=== PATIENT | female | born 1980 | race Caucasian/White ===

== ENCOUNTER 2020-05-12 11:50 | Inpatient (IN) | payer OTHER ==
[2020-05-12 13:17] VITALS: BMI 17.2
[2020-05-12] MEDS ORDERED: MAG HYDROX/AL HYDROX/SIMETH 30 ML UNIT-DOSE CUP PO PRN (13:43)
[2020-05-12] MEDS ORDERED: MAGNESIUM CITRATE 300 ML BOTTLE PO PRN (13:43)
[2020-05-12] MEDS ORDERED: MENTHOL/PHENOL 1 EACH UD MM PRN (13:43)
[2020-05-12] MEDS ORDERED: ACETAMINOPHEN 325 MG TABLET (FP) PO PRN ×2 (13:43)
[2020-05-12] MEDS ORDERED: METHOCARBAMOL 500 MG TABLET PO PRN (13:43)
[2020-05-12] MEDS ORDERED: IBUPROFEN 400 MG TABLET (FP) PO PRN (13:43)
[2020-05-12] MEDS ORDERED: BISMUTH SUBSALICYLATE 262 MG/15 ML BTL PO PRN (13:43)
[2020-05-12] MEDS ORDERED: MAGNESIUM HYDROX 2400MG/30ML ORAL SUSPENSION 30 ML CUP PO PRN (13:43)
[2020-05-12] MEDS: hydrOXYzine PAMOATE 25 MG CAPSULE (FP) PO SCH ×3 (14:54→22:14)
[2020-05-12] MEDS: chlordiazePOXIDE HCL 25 MG CAPSULE PO PRN (14:54)
[2020-05-12 17:13] LABS: HEMATOCRIT 38.7 % (32.4-45.2); HEMOGLOBIN 12.9 GM/dL (10.7-15.3); MCHC 33.5 g/dl (32.0-36.0); MEAN CELL VOLUME 107.5 fl (80-96); MEAN PLT VOLUME 7.5 fl (7.5-11.1); PLATELET COUNT 239 K/MM3 (134-434); RDW 13.9 % (11.6-15.6); WHITE BLOOD COUNT 4.4 K/mm3 (4.0-10.0)
[2020-05-12] MEDS: chlordiazePOXIDE HCL 25 MG CAPSULE PO SCH ×2 (17:15→22:13)
[2020-05-12 17:23] LABS: CALCIUM 9.1 mg/dL (8.5-10.1)
[2020-05-12 17:24] LABS: ALBUMIN 4.4 g/dl (3.4-5.0)
[2020-05-12 17:27] LABS: CREATININE 0.6 mg/dL (0.55-1.3)
[2020-05-12 17:28] LABS: BILIRUBIN,TOTAL 0.7 mg/dL (0.2-1)
[2020-05-12 17:29] LABS: TOT PROT 8.6 g/dl (6.4-8.2)
[2020-05-12] MEDS ORDERED: OXcarbazepine 300 MG TABLET (UD) PO SCH (22:00)
[2020-05-12] MEDS: THIAMINE HCL 100 MG TABLET (FP) PO SCH (22:14)
[2020-05-12] MEDS: MELATONIN 5 MG TABLETS PO SCH (22:15)
[2020-05-12] MEDS: PERPHENAZINE 4 MG TABLET PO SCH (22:15)
[2020-05-13] MEDS: chlordiazePOXIDE HCL 25 MG CAPSULE PO SCH ×4 (05:17→22:04)
[2020-05-13] MEDS: hydrOXYzine PAMOATE 25 MG CAPSULE (FP) PO SCH (05:17)
[2020-05-13] MEDS: PRENATAL VITAMINS W/ FOLIC ACID TABLET (FP) PO SCH (10:03)
[2020-05-13] MEDS: PERPHENAZINE 4 MG TABLET PO SCH ×2 (10:04→22:03)
[2020-05-13] MEDS: ONDANSETRON *ODT* 4 MG TABLET SL PRN (10:04)
[2020-05-13] MEDS: hydrOXYzine PAMOATE 25 MG CAPSULE (FP) PO PRN ×2 (17:48→22:04)
[2020-05-13] MEDS: THIAMINE HCL 100 MG TABLET (FP) PO SCH (22:03)
[2020-05-13] MEDS: MELATONIN 5 MG TABLETS PO SCH (23:25)
[2020-05-14] MEDS: chlordiazePOXIDE HCL 25 MG CAPSULE PO SCH ×4 (06:16→22:31)
[2020-05-14] MEDS: PRENATAL VITAMINS W/ FOLIC ACID TABLET (FP) PO SCH (10:11)
[2020-05-14] MEDS: PERPHENAZINE 4 MG TABLET PO SCH ×2 (10:12→22:01)
[2020-05-14] MEDS ORDERED: COLLOIDAL OATMEAL 1 BAR EACH TP ONE (12:42)
[2020-05-14] MEDS: hydrOXYzine PAMOATE 25 MG CAPSULE (FP) PO PRN ×2 (17:32→22:01)
[2020-05-14] MEDS: THIAMINE HCL 100 MG TABLET (FP) PO SCH (22:01)
[2020-05-14] MEDS: MELATONIN 5 MG TABLETS PO SCH (22:01)
[2020-05-14] MEDS: chlordiazePOXIDE HCL 25 MG CAPSULE PO PRN (22:02)
[2020-05-14] MEDS: ONDANSETRON *ODT* 4 MG TABLET SL PRN (22:04)
[2020-05-15] MEDS ORDERED: chlordiazePOXIDE HCL 10 MG CAPSULE PO PRN
[2020-05-15] MEDS: chlordiazePOXIDE HCL 10 MG CAPSULE PO SCH ×4 (05:44→22:19)
[2020-05-15] MEDS: PERPHENAZINE 4 MG TABLET PO SCH ×2 (10:04→22:20)
[2020-05-15] MEDS: PRENATAL VITAMINS W/ FOLIC ACID TABLET (FP) PO SCH (10:04)
[2020-05-15] MEDS: THIAMINE HCL 100 MG TABLET (FP) PO SCH (22:20)
[2020-05-15] MEDS: MELATONIN 5 MG TABLETS PO SCH (22:20)
[2020-05-16] MEDS: chlordiazePOXIDE HCL 10 MG CAPSULE PO SCH ×2 (06:26→17:36)
[2020-05-16] MEDS: PRENATAL VITAMINS W/ FOLIC ACID TABLET (FP) PO SCH (09:20)
[2020-05-16] MEDS: PERPHENAZINE 4 MG TABLET PO SCH ×2 (09:20→22:09)
[2020-05-16] MEDS: hydrOXYzine PAMOATE 25 MG CAPSULE (FP) PO PRN (22:08)
[2020-05-16] MEDS: THIAMINE HCL 100 MG TABLET (FP) PO SCH (22:08)
[2020-05-16] MEDS: MELATONIN 5 MG TABLETS PO SCH (22:08)
[2020-05-17] MEDS ORDERED: chlordiazePOXIDE HCL 10 MG CAPSULE PO ONE (05:00)
[2020-05-17] MEDS: PRENATAL VITAMINS W/ FOLIC ACID TABLET (FP) PO SCH (10:16)
[2020-05-17] MEDS: PERPHENAZINE 4 MG TABLET PO SCH ×2 (10:16→21:57)
[2020-05-17] MEDS: THIAMINE HCL 100 MG TABLET (FP) PO SCH (21:57)
[2020-05-17] MEDS: MELATONIN 5 MG TABLETS PO SCH (21:57)
[2020-05-18] MEDS: PERPHENAZINE 4 MG TABLET PO SCH (10:33)
[2020-05-18] MEDS: PRENATAL VITAMINS W/ FOLIC ACID TABLET (FP) PO SCH (10:33)
[2020-05-18 13:08] VITALS: BP 100/65; PULSE 93; TEMP 97.3
== END 2020-05-18 15:28 | disposition other institution (70) | DRG 774 ==
LOC: YASAS 11:50 → Y3N 13:31
PROVIDERS: ADMIT Allergy & Immunology; ATTEND Allergy & Immunology
PROC: HZ2ZZZZ Detoxification Services for Substance Abuse Treatment (ICD-10-PCS; principal; 2020-05-12)
DX: F10.230 Alcohol dependence with withdrawal, uncomplicated (principal); F14.90 Cocaine use, unspecified, uncomplicated; F31.9 Bipolar disorder, unspecified; R63.4 Abnormal weight loss; Z68.1 Body mass index [BMI] 19.9 or less, adult; Z87.891 Personal history of nicotine dependence; Z98.890 Other specified postprocedural states; Z91.5 Personal history of self-harm; Z88.0 Allergy status to penicillin
CPT/HCPCS: 36415; 80053; 80183; 85027; 86780; 93005; 93010; C9803; Q0162; U0003

== ENCOUNTER 2020-05-18 15:12 | Inpatient (IN) | payer OTHER ==
[2020-05-18] MEDS ORDERED: guaiFENesin 200 MG/10 ML 10 ML UNIT-DOSE CUPS PO PRN (15:50)
[2020-05-18] MEDS ORDERED: P-EPHED 60MG/TRIPROLIDI 2.5MG TABLET PO PRN (15:50)
[2020-05-18] MEDS ORDERED: MAG HYDROX/AL HYDROX/SIMETH 30 ML UNIT-DOSE CUP PO PRN (15:50)
[2020-05-18] MEDS ORDERED: LOPERAMIDE HCL 2 MG CAPSULE PO PRN (15:50)
[2020-05-18] MEDS ORDERED: ACETAMINOPHEN 325 MG TABLET (FP) PO PRN (15:50)
[2020-05-18] MEDS ORDERED: MAGNESIUM CITRATE 300 ML BOTTLE PO PRN (15:50)
[2020-05-18] MEDS ORDERED: MENTHOL/PHENOL 1 EACH UD MM PRN (15:50)
[2020-05-18] MEDS ORDERED: NICOTINE POLACRILEX 2 MG GUM BUC PRN (15:50)
[2020-05-18] MEDS ORDERED: PT OWN MED DRAWER 7, Y5N ONE (18:39)
[2020-05-18] MEDS: MELATONIN 5 MG TABLETS PO SCH (21:29)
[2020-05-18] MEDS: THIAMINE HCL 100 MG TABLET (FP) PO SCH (21:29)
[2020-05-18] MEDS: PERPHENAZINE 4 MG TABLET PO SCH (22:46)
[2020-05-19] MEDS: hydrOXYzine PAMOATE 25 MG CAPSULE (FP) PO PRN (10:45)
[2020-05-19] MEDS: PRENATAL VITAMINS W/ FOLIC ACID TABLET (FP) PO SCH (10:45)
[2020-05-19] MEDS: NICOTINE 7 MG/24 HOURS TOPICAL PATCH TD SCH (10:45)
[2020-05-19] MEDS: PERPHENAZINE 4 MG TABLET PO SCH ×2 (10:45→22:41)
[2020-05-19] MEDS: MAGNESIUM HYDROX 2400MG/30ML ORAL SUSPENSION 30 ML CUP PO PRN (10:45)
[2020-05-19] MEDS ORDERED: PT OWN MED DRAWER 7, Y5N ONE (19:04)
[2020-05-19] MEDS: MELATONIN 5 MG TABLETS PO SCH (21:18)
[2020-05-19] MEDS: THIAMINE HCL 100 MG TABLET (FP) PO SCH (21:18)
[2020-05-19] MEDS: OXcarbazepine 300 MG TABLET (UD) PO SCH (22:41)
[2020-05-20] MEDS: PRENATAL VITAMINS W/ FOLIC ACID TABLET (FP) PO SCH (10:36)
[2020-05-20] MEDS: OXcarbazepine 300 MG TABLET (UD) PO SCH ×2 (10:37→21:37)
[2020-05-20] MEDS: hydrOXYzine PAMOATE 25 MG CAPSULE (FP) PO PRN (10:37)
[2020-05-20] MEDS: PERPHENAZINE 4 MG TABLET PO SCH ×2 (10:37→22:25)
[2020-05-20] MEDS: MAGNESIUM HYDROX 2400MG/30ML ORAL SUSPENSION 30 ML CUP PO PRN (10:38)
[2020-05-20] MEDS: NICOTINE 7 MG/24 HOURS TOPICAL PATCH TD SCH (10:39)
[2020-05-20] MEDS: MELATONIN 5 MG TABLETS PO SCH (21:37)
[2020-05-20] MEDS: THIAMINE HCL 100 MG TABLET (FP) PO SCH (21:37)
[2020-05-21] MEDS: PERPHENAZINE 4 MG TABLET PO SCH ×2 (10:34→21:20)
[2020-05-21] MEDS: OXcarbazepine 300 MG TABLET (UD) PO SCH ×2 (10:43→21:20)
[2020-05-21] MEDS: PRENATAL VITAMINS W/ FOLIC ACID TABLET (FP) PO SCH (10:43)
[2020-05-21] MEDS: NICOTINE 7 MG/24 HOURS TOPICAL PATCH TD SCH (10:43)
[2020-05-21] MEDS ORDERED: PT OWN MED DRAWER 7, Y5N ONE (10:44)
[2020-05-21] MEDS: MELATONIN 5 MG TABLETS PO SCH (21:19)
[2020-05-21] MEDS: THIAMINE HCL 100 MG TABLET (FP) PO SCH (21:20)
[2020-05-21] MEDS: IBUPROFEN 400 MG TABLET (FP) PO PRN (21:20)
[2020-05-22] MEDS ORDERED: PT OWN MED DRAWER 7, Y5N ONE (09:09)
[2020-05-22] MEDS: PERPHENAZINE 4 MG TABLET PO SCH ×2 (10:31→21:20)
[2020-05-22] MEDS: PRENATAL VITAMINS W/ FOLIC ACID TABLET (FP) PO SCH (10:32)
[2020-05-22] MEDS: OXcarbazepine 300 MG TABLET (UD) PO SCH ×2 (10:32→21:20)
[2020-05-22] MEDS: NICOTINE 7 MG/24 HOURS TOPICAL PATCH TD SCH (10:33)
[2020-05-22] MEDS: MELATONIN 5 MG TABLETS PO SCH (21:20)
[2020-05-22] MEDS: THIAMINE HCL 100 MG TABLET (FP) PO SCH (21:20)
[2020-05-23] MEDS: PRENATAL VITAMINS W/ FOLIC ACID TABLET (FP) PO SCH (10:48)
[2020-05-23] MEDS: NICOTINE 7 MG/24 HOURS TOPICAL PATCH TD SCH (10:48)
[2020-05-23] MEDS: OXcarbazepine 300 MG TABLET (UD) PO SCH ×2 (10:49→21:09)
[2020-05-23] MEDS: PERPHENAZINE 4 MG TABLET PO SCH ×2 (10:49→21:09)
[2020-05-23] MEDS: THIAMINE HCL 100 MG TABLET (FP) PO SCH (21:09)
[2020-05-23] MEDS: MELATONIN 5 MG TABLETS PO SCH (21:09)
[2020-05-24] MEDS: OXcarbazepine 300 MG TABLET (UD) PO SCH ×2 (10:32→21:25)
[2020-05-24] MEDS: PERPHENAZINE 4 MG TABLET PO SCH ×2 (10:32→21:25)
[2020-05-24] MEDS: PRENATAL VITAMINS W/ FOLIC ACID TABLET (FP) PO SCH (10:32)
[2020-05-24] MEDS: NICOTINE 7 MG/24 HOURS TOPICAL PATCH TD SCH (10:32)
[2020-05-24] MEDS: MAGNESIUM HYDROX 2400MG/30ML ORAL SUSPENSION 30 ML CUP PO PRN (10:34)
[2020-05-24] MEDS ORDERED: PT OWN MED DRAWER 7, Y5N ONE (10:55)
[2020-05-24] MEDS: THIAMINE HCL 100 MG TABLET (FP) PO SCH (21:25)
[2020-05-24] MEDS: MELATONIN 5 MG TABLETS PO SCH (21:25)
[2020-05-25] MEDS ORDERED: PT OWN MED DRAWER 7, Y5N ONE (08:59)
[2020-05-25] MEDS: PERPHENAZINE 4 MG TABLET PO SCH ×2 (10:40→21:23)
[2020-05-25] MEDS: PRENATAL VITAMINS W/ FOLIC ACID TABLET (FP) PO SCH (10:40)
[2020-05-25] MEDS: OXcarbazepine 300 MG TABLET (UD) PO SCH ×2 (10:40→21:23)
[2020-05-25] MEDS: hydrOXYzine PAMOATE 25 MG CAPSULE (FP) PO PRN (10:40)
[2020-05-25] MEDS: NICOTINE 7 MG/24 HOURS TOPICAL PATCH TD SCH (10:41)
[2020-05-25] MEDS: MELATONIN 5 MG TABLETS PO SCH (21:23)
[2020-05-25] MEDS: THIAMINE HCL 100 MG TABLET (FP) PO SCH (21:23)
[2020-05-25] MEDS: HYDROCORTISONE 1% TOPICAL CREAM 30 GM TUBE TP SCH (21:24)
[2020-05-26] MEDS: PRENATAL VITAMINS W/ FOLIC ACID TABLET (FP) PO SCH (10:22)
[2020-05-26] MEDS: PERPHENAZINE 4 MG TABLET PO SCH ×2 (10:22→21:32)
[2020-05-26] MEDS: OXcarbazepine 300 MG TABLET (UD) PO SCH ×2 (10:22→21:32)
[2020-05-26] MEDS: hydrOXYzine PAMOATE 25 MG CAPSULE (FP) PO PRN (10:23)
[2020-05-26] MEDS: HYDROCORTISONE 1% TOPICAL CREAM 30 GM TUBE TP SCH ×2 (10:24→21:34)
[2020-05-26] MEDS: THIAMINE HCL 100 MG TABLET (FP) PO SCH (21:32)
[2020-05-26] MEDS: MELATONIN 5 MG TABLETS PO SCH (21:33)
[2020-05-26] MEDS: IBUPROFEN 400 MG TABLET (FP) PO PRN (21:33)
[2020-05-27] MEDS: OXcarbazepine 300 MG TABLET (UD) PO SCH ×2 (10:24→21:17)
[2020-05-27] MEDS: PRENATAL VITAMINS W/ FOLIC ACID TABLET (FP) PO SCH (10:24)
[2020-05-27] MEDS: PERPHENAZINE 4 MG TABLET PO SCH ×2 (10:24→21:17)
[2020-05-27] MEDS: HYDROCORTISONE 1% TOPICAL CREAM 30 GM TUBE TP SCH ×2 (10:25→21:18)
[2020-05-27] MEDS: MELATONIN 5 MG TABLETS PO SCH (21:17)
[2020-05-27] MEDS: THIAMINE HCL 100 MG TABLET (FP) PO SCH (21:17)
[2020-05-28] MEDS: PERPHENAZINE 4 MG TABLET PO SCH ×2 (10:30→21:42)
[2020-05-28] MEDS: PRENATAL VITAMINS W/ FOLIC ACID TABLET (FP) PO SCH (10:30)
[2020-05-28] MEDS: hydrOXYzine PAMOATE 25 MG CAPSULE (FP) PO PRN (10:30)
[2020-05-28] MEDS: OXcarbazepine 300 MG TABLET (UD) PO SCH ×2 (10:30→21:42)
[2020-05-28] MEDS: HYDROCORTISONE 1% TOPICAL CREAM 30 GM TUBE TP SCH ×2 (10:30→21:43)
[2020-05-28] MEDS: MELATONIN 5 MG TABLETS PO SCH (21:43)
[2020-05-28] MEDS: THIAMINE HCL 100 MG TABLET (FP) PO SCH (21:43)
[2020-05-29 07:33] VITALS: BP 89/52; PULSE 81; TEMP 98.1
[2020-05-29] MEDS: OXcarbazepine 300 MG TABLET (UD) PO SCH (09:54)
[2020-05-29] MEDS: HYDROCORTISONE 1% TOPICAL CREAM 30 GM TUBE TP SCH (09:54)
[2020-05-29] MEDS: hydrOXYzine PAMOATE 25 MG CAPSULE (FP) PO PRN (09:54)
[2020-05-29] MEDS: PRENATAL VITAMINS W/ FOLIC ACID TABLET (FP) PO SCH (09:54)
[2020-05-29] MEDS: PERPHENAZINE 4 MG TABLET PO SCH (09:54)
== END 2020-05-29 10:15 | disposition home or self-care (01) | DRG 772 ==
LOC: YASAS 15:12 → Y3W 15:13
PROVIDERS: ADMIT Allergy & Immunology; ATTEND Allergy & Immunology
PROC: HZ42ZZZ Group Counseling for Substance Abuse Treatment, Cognitive-Behavioral (ICD-10-PCS; principal; 2020-05-18)
DX: F10.20 Alcohol dependence, uncomplicated (principal); F10.24 Alcohol dependence with alcohol-induced mood disorder; F31.9 Bipolar disorder, unspecified; R63.4 Abnormal weight loss; Z68.1 Body mass index [BMI] 19.9 or less, adult; Z91.5 Personal history of self-harm; Z91.410 Personal history of adult physical and sexual abuse; Z87.891 Personal history of nicotine dependence; Z88.0 Allergy status to penicillin
CPT/HCPCS: C9803; U0003

== ENCOUNTER 2022-01-13 09:02 | Inpatient (IN) | payer OTHER ==
[2022-01-13 10:25] VITALS: BMI 20.2
[2022-01-13] MEDS ORDERED: IBUPROFEN 600 MG TABLET (FP) PO PRN (10:46)
[2022-01-13] MEDS ORDERED: IBUPROFEN 400 MG TABLET (FP) PO PRN (10:46)
[2022-01-13] MEDS ORDERED: BISMUTH SUBSALICYLATE 262 MG/15 ML BTL PO PRN (10:46)
[2022-01-13] MEDS ORDERED: NALOXONE HCL (KLOXXADO) 8 MG SPRAY NS PRN (10:46)
[2022-01-13] MEDS ORDERED: MAGNESIUM HYDROX 2400MG/30ML ORAL SUSPENSION 30 ML CUP PO PRN (10:46)
[2022-01-13] MEDS ORDERED: BENZOCAINE/MENTHOL (CHLORASEPTIC ) LOZENGE MM PRN (10:46)
[2022-01-13] MEDS ORDERED: MAGNESIUM CITRATE 300 ML BOTTLE PO PRN (10:46)
[2022-01-13] MEDS ORDERED: chlordiazePOXIDE HCL 25 MG CAPSULE PO PRN (10:46)
[2022-01-13] MEDS ORDERED: LOPERAMIDE HCL 2 MG CAPSULE PO PRN (10:46)
[2022-01-13] MEDS ORDERED: ONDANSETRON *ODT* 4 MG TABLET SL PRN (10:46)
[2022-01-13] MEDS ORDERED: DICYCLOMINE HCL 10 MG CAPSULE PO PRN (10:46)
[2022-01-13] MEDS ORDERED: MAG HYDROX/AL HYDROX/SIMETH 30 ML UNIT-DOSE CUP PO PRN (10:46)
[2022-01-13] MEDS ORDERED: ACETAMINOPHEN 325 MG TABLET (FP) PO PRN ×2 (10:46)
[2022-01-13] MEDS: chlordiazePOXIDE HCL 25 MG CAPSULE PO SCH ×3 (11:12→22:13)
[2022-01-13] MEDS: PRENATAL VITAMINS W/ FOLIC ACID TABLET (FP) PO SCH (11:49)
[2022-01-13] MEDS: hydrOXYzine PAMOATE 25 MG CAPSULE (FP) PO SCH ×3 (13:47→22:14)
[2022-01-13 15:16] LABS: HEMATOCRIT 35.5 % (32.4-45.2); HEMOGLOBIN 12.1 GM/dL (10.7-15.3); MCH 36.9 pg (25.7-33.7); MCHC 34.1 g/dl (32.0-36.0); MEAN CELL VOLUME 108.3 fl (80-96); MEAN PLT VOLUME 8.7 fl (7.5-11.1); PLATELET COUNT 170 10^3/uL (134-434); RBC 3.28 M/mm3 (3.60-5.2); RDW 14.7 % (11.6-15.6); WHITE BLOOD COUNT 4.4 K/mm3 (4.0-10.0)
[2022-01-13 15:30] LABS: CALCIUM 9.3 mg/dL (8.5-10.1)
[2022-01-13 15:31] LABS: ALBUMIN 4.3 g/dl (3.4-5.0); BLOOD UREA NITROGEN 6.3 mg/dL (7-18)
[2022-01-13 15:34] LABS: CREATININE 0.6 mg/dL (0.55-1.3)
[2022-01-13 15:36] LABS: BILIRUBIN,TOTAL 0.2 mg/dL (0.2-1); TOT PROT 8.2 g/dl (6.4-8.2)
[2022-01-13] MEDS: THIAMINE HCL 100 MG TABLET (FP) PO SCH (22:14)
[2022-01-13] MEDS: MELATONIN 5 MG TABLETS PO SCH (22:14)
[2022-01-14] MEDS: hydrOXYzine PAMOATE 25 MG CAPSULE (FP) PO SCH ×5 (06:30→22:21)
[2022-01-14] MEDS: chlordiazePOXIDE HCL 25 MG CAPSULE PO SCH ×2 (06:30→10:34)
[2022-01-14] MEDS: PERPHENAZINE 4 MG TABLET PO SCH ×2 (10:33→22:21)
[2022-01-14] MEDS: PRENATAL VITAMINS W/ FOLIC ACID TABLET (FP) PO SCH (10:33)
[2022-01-14] MEDS: METHOCARBAMOL 500 MG TABLET PO PRN (10:34)
[2022-01-14] MEDS ORDERED: LORazepam 1 MG TABLET PO PRN (13:34)
[2022-01-14] MEDS: LORazepam 2 MG TABLET PO SCH ×2 (17:50→22:22)
[2022-01-14] MEDS: MELATONIN 5 MG TABLETS PO SCH (22:21)
[2022-01-14] MEDS: THIAMINE HCL 100 MG TABLET (FP) PO SCH (22:21)
[2022-01-15] MEDS ORDERED: chlordiazePOXIDE HCL 25 MG CAPSULE PO SCH (05:00)
[2022-01-15] MEDS: hydrOXYzine PAMOATE 25 MG CAPSULE (FP) PO SCH ×5 (05:56→22:05)
[2022-01-15] MEDS: LORazepam 2 MG TABLET PO SCH ×4 (05:56→22:05)
[2022-01-15] MEDS: PRENATAL VITAMINS W/ FOLIC ACID TABLET (FP) PO SCH (10:44)
[2022-01-15] MEDS: METHOCARBAMOL 500 MG TABLET PO PRN (10:44)
[2022-01-15] MEDS: PERPHENAZINE 4 MG TABLET PO SCH ×2 (10:45→22:05)
[2022-01-15] MEDS: MELATONIN 5 MG TABLETS PO SCH (22:05)
[2022-01-15] MEDS: THIAMINE HCL 100 MG TABLET (FP) PO SCH (22:05)
[2022-01-15] MEDS: MINERAL OIL/PETROLAT/WATER TOPICAL CREAM 113 GM JAR TP SCH (22:32)
[2022-01-16] MEDS ORDERED: chlordiazePOXIDE HCL 10 MG CAPSULE PO PRN
[2022-01-16] MEDS: METHOCARBAMOL 500 MG TABLET PO PRN (02:49)
[2022-01-16] MEDS ORDERED: chlordiazePOXIDE HCL 10 MG CAPSULE PO SCH (05:00)
[2022-01-16] MEDS: LORazepam 1 MG TABLET PO SCH ×4 (05:38→22:06)
[2022-01-16] MEDS: hydrOXYzine PAMOATE 25 MG CAPSULE (FP) PO SCH ×5 (05:38→22:06)
[2022-01-16] MEDS: PRENATAL VITAMINS W/ FOLIC ACID TABLET (FP) PO SCH (10:44)
[2022-01-16] MEDS: PERPHENAZINE 4 MG TABLET PO SCH ×2 (10:44→22:06)
[2022-01-16] MEDS: MINERAL OIL/PETROLAT/WATER TOPICAL CREAM 113 GM JAR TP SCH ×2 (10:44→22:05)
[2022-01-16] MEDS: THIAMINE HCL 100 MG TABLET (FP) PO SCH (22:06)
[2022-01-16] MEDS: MELATONIN 5 MG TABLETS PO SCH (22:06)
[2022-01-17] MEDS ORDERED: LORazepam 0.5 MG TABLET PO PRN
[2022-01-17] MEDS ORDERED: chlordiazePOXIDE HCL 10 MG CAPSULE PO SCH (05:00)
[2022-01-17] MEDS: hydrOXYzine PAMOATE 25 MG CAPSULE (FP) PO SCH ×5 (06:15→22:19)
[2022-01-17] MEDS: LORazepam 0.5 MG TABLET PO SCH ×4 (06:16→22:19)
[2022-01-17] MEDS: PERPHENAZINE 4 MG TABLET PO SCH ×2 (10:23→22:19)
[2022-01-17] MEDS: PRENATAL VITAMINS W/ FOLIC ACID TABLET (FP) PO SCH (10:23)
[2022-01-17] MEDS: MINERAL OIL/PETROLAT/WATER TOPICAL CREAM 113 GM JAR TP SCH ×2 (10:23→22:19)
[2022-01-17 20:53] VITALS: RESP 18
[2022-01-17] MEDS: MELATONIN 5 MG TABLETS PO SCH (22:19)
[2022-01-17] MEDS: THIAMINE HCL 100 MG TABLET (FP) PO SCH (22:20)
[2022-01-18] MEDS ORDERED: chlordiazePOXIDE HCL 10 MG CAPSULE PO ONE (05:00)
[2022-01-18] MEDS ORDERED: LORazepam 0.5 MG TABLET PO ONE (05:00)
[2022-01-18] MEDS: hydrOXYzine PAMOATE 25 MG CAPSULE (FP) PO SCH ×2 (05:58→10:35)
[2022-01-18] MEDS: PERPHENAZINE 4 MG TABLET PO SCH (10:35)
[2022-01-18] MEDS: PRENATAL VITAMINS W/ FOLIC ACID TABLET (FP) PO SCH (10:35)
[2022-01-18] MEDS: MINERAL OIL/PETROLAT/WATER TOPICAL CREAM 113 GM JAR TP SCH (10:36)
[2022-01-18 12:43] VITALS: BP 114/85; PULSE 103; TEMP 98
== END 2022-01-18 12:58 | disposition other institution (70) | DRG 775 ==
LOC: YASAS 09:02 → Y3N 11:20
PROVIDERS: ADMIT Allergy & Immunology; ATTEND Allergy & Immunology
PROC: HZ2ZZZZ Detoxification Services for Substance Abuse Treatment (ICD-10-PCS; principal; 2022-01-13)
DX: F10.230 Alcohol dependence with withdrawal, uncomplicated (principal); F31.9 Bipolar disorder, unspecified; F10.24 Alcohol dependence with alcohol-induced mood disorder; R74.8 Abnormal levels of other serum enzymes; Z87.891 Personal history of nicotine dependence; Z88.0 Allergy status to penicillin; Z56.0 Unemployment, unspecified; Z59.00 Homelessness unspecified
CPT/HCPCS: 36415; 80053; 81025; 85027; 86780; C9803-CS; Q0162; U0003; U0005

== ENCOUNTER 2022-01-18 13:06 | Inpatient (IN) | payer OTHER ==
[2022-01-18] MEDS ORDERED: guaiFENesin 200 MG/10 ML 10 ML UNIT-DOSE CUPS PO PRN (13:35)
[2022-01-18] MEDS ORDERED: BENZOCAINE/MENTHOL (CHLORASEPTIC ) LOZENGE MM PRN (13:35)
[2022-01-18] MEDS ORDERED: P-EPHED 60MG/TRIPROLIDI 2.5MG TABLET PO PRN (13:35)
[2022-01-18] MEDS ORDERED: LOPERAMIDE HCL 2 MG CAPSULE PO PRN (13:35)
[2022-01-18] MEDS ORDERED: IBUPROFEN 400 MG TABLET (FP) PO PRN (13:35)
[2022-01-18] MEDS ORDERED: NICOTINE POLACRILEX 2 MG GUM BUC PRN (13:35)
[2022-01-18] MEDS ORDERED: MAG HYDROX/AL HYDROX/SIMETH 30 ML UNIT-DOSE CUP PO PRN (13:35)
[2022-01-18] MEDS ORDERED: MAGNESIUM CITRATE 300 ML BOTTLE PO PRN (13:35)
[2022-01-18] MEDS ORDERED: MAGNESIUM HYDROX 2400MG/30ML ORAL SUSPENSION 30 ML CUP PO PRN (13:35)
[2022-01-18] MEDS ORDERED: NICOTINE 10 MG CARTRIDGE (INHALER) IH PRN (13:35)
[2022-01-18] MEDS: hydrOXYzine PAMOATE 25 MG CAPSULE (FP) PO PRN (21:45)
[2022-01-18] MEDS: MELATONIN 5 MG TABLETS PO SCH (21:45)
[2022-01-18] MEDS: THIAMINE HCL 100 MG TABLET (FP) PO SCH (21:46)
[2022-01-18] MEDS: PERPHENAZINE 4 MG TABLET PO SCH (22:16)
[2022-01-19] MEDS: PERPHENAZINE 4 MG TABLET PO SCH ×2 (10:55→21:50)
[2022-01-19] MEDS: PRENATAL VITAMINS W/ FOLIC ACID TABLET (FP) PO SCH (10:55)
[2022-01-19] MEDS: hydrOXYzine PAMOATE 25 MG CAPSULE (FP) PO PRN ×2 (10:56→21:47)
[2022-01-19] MEDS: MELATONIN 5 MG TABLETS PO SCH (21:44)
[2022-01-19] MEDS: THIAMINE HCL 100 MG TABLET (FP) PO SCH (21:44)
[2022-01-20] MEDS: PERPHENAZINE 4 MG TABLET PO SCH ×3 (07:55→21:50)
[2022-01-20] MEDS: PRENATAL VITAMINS W/ FOLIC ACID TABLET (FP) PO SCH (10:22)
[2022-01-20] MEDS: THIAMINE HCL 100 MG TABLET (FP) PO SCH (21:50)
[2022-01-20] MEDS: MELATONIN 5 MG TABLETS PO SCH (21:50)
[2022-01-21] MEDS: PRENATAL VITAMINS W/ FOLIC ACID TABLET (FP) PO SCH (10:24)
[2022-01-21] MEDS: PERPHENAZINE 4 MG TABLET PO SCH ×2 (10:24→21:57)
[2022-01-21] MEDS: hydrOXYzine PAMOATE 25 MG CAPSULE (FP) PO PRN ×2 (10:25→21:57)
[2022-01-21] MEDS ORDERED: COLLOIDAL OATMEAL 1 BAR EACH TP PRN (11:16)
[2022-01-21] MEDS: KETOCONAZOLE 2 % SHAMPOO 120 ML BOTTLE TP SCH (12:39)
[2022-01-21] MEDS: HYDROCORTISONE 1% TOPICAL CREAM 30 GM TUBE TP PRN (12:39)
[2022-01-21] MEDS: THIAMINE HCL 100 MG TABLET (FP) PO SCH (21:57)
[2022-01-21] MEDS: MELATONIN 5 MG TABLETS PO SCH (21:58)
[2022-01-22] MEDS: PERPHENAZINE 4 MG TABLET PO SCH ×2 (10:40→22:09)
[2022-01-22] MEDS: PRENATAL VITAMINS W/ FOLIC ACID TABLET (FP) PO SCH (10:40)
[2022-01-22 12:22] LABS: CALCIUM 9.1 mg/dL (8.5-10.1)
[2022-01-22 12:24] LABS: ALBUMIN 3.7 g/dl (3.4-5.0); BLOOD UREA NITROGEN 8.4 mg/dL (7-18)
[2022-01-22 12:26] LABS: CREATININE 0.6 mg/dL (0.55-1.3)
[2022-01-22 12:27] LABS: BILIRUBIN,TOTAL 0.3 mg/dL (0.2-1)
[2022-01-22] MEDS: HYDROCORTISONE 1% TOPICAL CREAM 30 GM TUBE TP PRN (19:05)
[2022-01-22] MEDS: THIAMINE HCL 100 MG TABLET (FP) PO SCH (22:09)
[2022-01-22] MEDS: MELATONIN 5 MG TABLETS PO SCH (22:09)
[2022-01-23] MEDS: PERPHENAZINE 4 MG TABLET PO SCH ×2 (10:05→21:45)
[2022-01-23] MEDS: PRENATAL VITAMINS W/ FOLIC ACID TABLET (FP) PO SCH (10:05)
[2022-01-23] MEDS: THIAMINE HCL 100 MG TABLET (FP) PO SCH (21:45)
[2022-01-23] MEDS: MELATONIN 5 MG TABLETS PO SCH (21:45)
[2022-01-24] MEDS: PERPHENAZINE 4 MG TABLET PO SCH ×2 (09:58→21:44)
[2022-01-24] MEDS: PRENATAL VITAMINS W/ FOLIC ACID TABLET (FP) PO SCH (09:58)
[2022-01-24] MEDS: KETOCONAZOLE 2 % SHAMPOO 120 ML BOTTLE TP SCH (14:23)
[2022-01-24] MEDS: MELATONIN 5 MG TABLETS PO SCH (21:44)
[2022-01-24] MEDS: THIAMINE HCL 100 MG TABLET (FP) PO SCH (21:44)
[2022-01-25] MEDS: PERPHENAZINE 4 MG TABLET PO SCH ×2 (10:24→21:48)
[2022-01-25] MEDS: PRENATAL VITAMINS W/ FOLIC ACID TABLET (FP) PO SCH (10:24)
[2022-01-25] MEDS: MELATONIN 5 MG TABLETS PO SCH (21:48)
[2022-01-25] MEDS: THIAMINE HCL 100 MG TABLET (FP) PO SCH (21:48)
[2022-01-26] MEDS: PRENATAL VITAMINS W/ FOLIC ACID TABLET (FP) PO SCH (10:44)
[2022-01-26] MEDS: PERPHENAZINE 4 MG TABLET PO SCH ×2 (10:44→21:50)
[2022-01-26] MEDS: hydrOXYzine PAMOATE 25 MG CAPSULE (FP) PO PRN (21:50)
[2022-01-26] MEDS: THIAMINE HCL 100 MG TABLET (FP) PO SCH (21:50)
[2022-01-26] MEDS: MELATONIN 5 MG TABLETS PO SCH (21:51)
[2022-01-27] MEDS: PRENATAL VITAMINS W/ FOLIC ACID TABLET (FP) PO SCH (10:49)
[2022-01-27] MEDS: PERPHENAZINE 4 MG TABLET PO SCH ×2 (10:49→21:04)
[2022-01-27] MEDS: HYDROCORTISONE 1% TOPICAL CREAM 30 GM TUBE TP PRN (10:50)
[2022-01-27] MEDS: KETOCONAZOLE 2 % SHAMPOO 120 ML BOTTLE TP SCH (13:02)
[2022-01-27] MEDS: THIAMINE HCL 100 MG TABLET (FP) PO SCH (21:04)
[2022-01-27] MEDS: MELATONIN 5 MG TABLETS PO SCH (21:05)
[2022-01-28] MEDS: PERPHENAZINE 4 MG TABLET PO SCH ×2 (10:33→21:36)
[2022-01-28] MEDS: PRENATAL VITAMINS W/ FOLIC ACID TABLET (FP) PO SCH (10:33)
[2022-01-28] MEDS: MELATONIN 5 MG TABLETS PO SCH (21:36)
[2022-01-28] MEDS: THIAMINE HCL 100 MG TABLET (FP) PO SCH (21:36)
[2022-01-29] MEDS: PRENATAL VITAMINS W/ FOLIC ACID TABLET (FP) PO SCH (10:26)
[2022-01-29] MEDS: PERPHENAZINE 4 MG TABLET PO SCH ×2 (10:26→22:03)
[2022-01-29] MEDS: NALTREXONE HCL 50 MG TABLET PO SCH (10:26)
[2022-01-29] MEDS: MELATONIN 5 MG TABLETS PO SCH (22:03)
[2022-01-29] MEDS: THIAMINE HCL 100 MG TABLET (FP) PO SCH (22:04)
[2022-01-30] MEDS: PRENATAL VITAMINS W/ FOLIC ACID TABLET (FP) PO SCH (09:58)
[2022-01-30] MEDS: NALTREXONE HCL 50 MG TABLET PO SCH (09:58)
[2022-01-30] MEDS: PERPHENAZINE 4 MG TABLET PO SCH ×2 (09:58→21:43)
[2022-01-30] MEDS: KETOCONAZOLE 2 % SHAMPOO 120 ML BOTTLE TP SCH (12:31)
[2022-01-30] MEDS: THIAMINE HCL 100 MG TABLET (FP) PO SCH (21:43)
[2022-01-30] MEDS: MELATONIN 5 MG TABLETS PO SCH (21:43)
[2022-01-31] MEDS ORDERED: ONDANSETRON *ODT* 4 MG TABLET SL PRN (09:51)
[2022-01-31] MEDS: PRENATAL VITAMINS W/ FOLIC ACID TABLET (FP) PO SCH (10:21)
[2022-01-31] MEDS: NALTREXONE HCL 50 MG TABLET PO SCH (10:21)
[2022-01-31] MEDS: PERPHENAZINE 4 MG TABLET PO SCH ×2 (10:21→21:54)
[2022-01-31] MEDS: ACETAMINOPHEN 325 MG TABLET (FP) PO PRN ×2 (10:23→21:55)
[2022-01-31] MEDS: THIAMINE HCL 100 MG TABLET (FP) PO SCH (21:54)
[2022-01-31] MEDS: MELATONIN 5 MG TABLETS PO SCH (21:54)
[2022-02-01] MEDS: PERPHENAZINE 4 MG TABLET PO SCH ×2 (10:29→21:46)
[2022-02-01] MEDS: NALTREXONE HCL 50 MG TABLET PO SCH (10:29)
[2022-02-01] MEDS: PRENATAL VITAMINS W/ FOLIC ACID TABLET (FP) PO SCH (10:29)
[2022-02-01] MEDS: THIAMINE HCL 100 MG TABLET (FP) PO SCH (21:46)
[2022-02-01] MEDS: MELATONIN 5 MG TABLETS PO SCH (21:46)
[2022-02-02] MEDS: NALTREXONE HCL 50 MG TABLET PO SCH (10:07)
[2022-02-02] MEDS: PRENATAL VITAMINS W/ FOLIC ACID TABLET (FP) PO SCH (10:07)
[2022-02-02] MEDS: PERPHENAZINE 4 MG TABLET PO SCH ×2 (10:07→21:39)
[2022-02-02] MEDS: KETOCONAZOLE 2 % SHAMPOO 120 ML BOTTLE TP SCH ×2 (10:08→10:42)
[2022-02-02] MEDS: THIAMINE HCL 100 MG TABLET (FP) PO SCH (21:39)
[2022-02-02] MEDS: MELATONIN 5 MG TABLETS PO SCH (21:39)
[2022-02-03] MEDS: PRENATAL VITAMINS W/ FOLIC ACID TABLET (FP) PO SCH (10:16)
[2022-02-03] MEDS: PERPHENAZINE 4 MG TABLET PO SCH ×2 (10:17→21:34)
[2022-02-03] MEDS: NALTREXONE HCL 50 MG TABLET PO SCH (10:17)
[2022-02-03] MEDS: THIAMINE HCL 100 MG TABLET (FP) PO SCH (21:34)
[2022-02-03] MEDS: MELATONIN 5 MG TABLETS PO SCH (21:34)
[2022-02-04] MEDS: NALTREXONE HCL 50 MG TABLET PO SCH (10:23)
[2022-02-04] MEDS: PERPHENAZINE 4 MG TABLET PO SCH ×2 (10:23→21:42)
[2022-02-04] MEDS: PRENATAL VITAMINS W/ FOLIC ACID TABLET (FP) PO SCH (10:23)
[2022-02-04] MEDS: MELATONIN 5 MG TABLETS PO SCH (21:42)
[2022-02-04] MEDS: THIAMINE HCL 100 MG TABLET (FP) PO SCH (21:42)
[2022-02-05] MEDS: PRENATAL VITAMINS W/ FOLIC ACID TABLET (FP) PO SCH (10:22)
[2022-02-05] MEDS: PERPHENAZINE 4 MG TABLET PO SCH ×2 (10:22→21:28)
[2022-02-05] MEDS: NALTREXONE HCL 50 MG TABLET PO SCH (10:22)
[2022-02-05] MEDS: KETOCONAZOLE 2 % SHAMPOO 120 ML BOTTLE TP SCH (13:49)
[2022-02-05] MEDS: MELATONIN 5 MG TABLETS PO SCH (21:28)
[2022-02-05] MEDS: THIAMINE HCL 100 MG TABLET (FP) PO SCH (21:28)
[2022-02-06] MEDS: PRENATAL VITAMINS W/ FOLIC ACID TABLET (FP) PO SCH (10:02)
[2022-02-06] MEDS: NALTREXONE HCL 50 MG TABLET PO SCH (10:02)
[2022-02-06] MEDS: HYDROCORTISONE 1% TOPICAL CREAM 30 GM TUBE TP PRN (10:03)
[2022-02-06] MEDS: PERPHENAZINE 4 MG TABLET PO SCH ×2 (10:03→21:40)
[2022-02-06] MEDS: MELATONIN 5 MG TABLETS PO SCH (21:40)
[2022-02-06] MEDS: THIAMINE HCL 100 MG TABLET (FP) PO SCH (21:40)
[2022-02-07] MEDS: PRENATAL VITAMINS W/ FOLIC ACID TABLET (FP) PO SCH (10:34)
[2022-02-07] MEDS: NALTREXONE HCL 50 MG TABLET PO SCH (10:34)
[2022-02-07] MEDS: PERPHENAZINE 4 MG TABLET PO SCH ×2 (10:34→21:37)
[2022-02-07] MEDS: MELATONIN 5 MG TABLETS PO SCH (21:36)
[2022-02-07] MEDS: THIAMINE HCL 100 MG TABLET (FP) PO SCH (21:37)
[2022-02-08] MEDS: PRENATAL VITAMINS W/ FOLIC ACID TABLET (FP) PO SCH (10:07)
[2022-02-08] MEDS: PERPHENAZINE 4 MG TABLET PO SCH ×2 (10:08→21:31)
[2022-02-08] MEDS: NALTREXONE HCL 50 MG TABLET PO SCH (10:08)
[2022-02-08] MEDS: KETOCONAZOLE 2 % SHAMPOO 120 ML BOTTLE TP SCH (16:12)
[2022-02-08] MEDS: THIAMINE HCL 100 MG TABLET (FP) PO SCH (21:31)
[2022-02-08] MEDS: ACETAMINOPHEN 325 MG TABLET (FP) PO PRN (21:31)
[2022-02-08] MEDS: MELATONIN 5 MG TABLETS PO SCH (21:31)
[2022-02-09] MEDS: NALTREXONE HCL 50 MG TABLET PO SCH (10:35)
[2022-02-09] MEDS: PRENATAL VITAMINS W/ FOLIC ACID TABLET (FP) PO SCH (10:35)
[2022-02-09] MEDS: HYDROCORTISONE 1% TOPICAL CREAM 30 GM TUBE TP PRN (10:36)
[2022-02-09] MEDS: PERPHENAZINE 4 MG TABLET PO SCH ×2 (10:36→21:30)
[2022-02-09] MEDS: MELATONIN 5 MG TABLETS PO SCH (21:30)
[2022-02-09] MEDS: THIAMINE HCL 100 MG TABLET (FP) PO SCH (21:30)
[2022-02-10] MEDS: PERPHENAZINE 4 MG TABLET PO SCH ×2 (10:03→21:20)
[2022-02-10] MEDS: NALTREXONE HCL 50 MG TABLET PO SCH (10:03)
[2022-02-10] MEDS: PRENATAL VITAMINS W/ FOLIC ACID TABLET (FP) PO SCH (10:03)
[2022-02-10] MEDS: ACETAMINOPHEN 325 MG TABLET (FP) PO PRN (10:04)
[2022-02-10] MEDS: MELATONIN 5 MG TABLETS PO SCH (21:20)
[2022-02-10] MEDS: THIAMINE HCL 100 MG TABLET (FP) PO SCH (21:20)
[2022-02-10] MEDS: ACAMPROSATE CALCIUM 333 MG TABLET.DR PO SCH (21:20)
[2022-02-11] MEDS: PRENATAL VITAMINS W/ FOLIC ACID TABLET (FP) PO SCH (10:27)
[2022-02-11] MEDS: ACAMPROSATE CALCIUM 333 MG TABLET.DR PO SCH ×2 (10:28→21:21)
[2022-02-11] MEDS: PERPHENAZINE 4 MG TABLET PO SCH ×2 (10:29→21:21)
[2022-02-11] MEDS: NALTREXONE HCL 50 MG TABLET PO SCH (10:30)
[2022-02-11] MEDS: KETOCONAZOLE 2 % SHAMPOO 120 ML BOTTLE TP SCH (10:30)
[2022-02-11] MEDS: MELATONIN 5 MG TABLETS PO SCH (21:21)
[2022-02-11] MEDS: THIAMINE HCL 100 MG TABLET (FP) PO SCH (21:21)
[2022-02-12] MEDS: PRENATAL VITAMINS W/ FOLIC ACID TABLET (FP) PO SCH (10:34)
[2022-02-12] MEDS: ACAMPROSATE CALCIUM 333 MG TABLET.DR PO SCH ×2 (10:35→21:39)
[2022-02-12] MEDS: PERPHENAZINE 4 MG TABLET PO SCH ×2 (10:35→21:39)
[2022-02-12] MEDS: NALTREXONE HCL 50 MG TABLET PO SCH (10:35)
[2022-02-12] MEDS: MELATONIN 5 MG TABLETS PO SCH (21:39)
[2022-02-12] MEDS: THIAMINE HCL 100 MG TABLET (FP) PO SCH (21:40)
[2022-02-13] MEDS: NALTREXONE HCL 50 MG TABLET PO SCH (10:27)
[2022-02-13] MEDS: PRENATAL VITAMINS W/ FOLIC ACID TABLET (FP) PO SCH (10:27)
[2022-02-13] MEDS: PERPHENAZINE 4 MG TABLET PO SCH ×2 (10:28→21:21)
[2022-02-13] MEDS: ACAMPROSATE CALCIUM 333 MG TABLET.DR PO SCH ×2 (10:29→21:21)
[2022-02-13] MEDS: HYDROCORTISONE 1% TOPICAL CREAM 30 GM TUBE TP PRN (10:29)
[2022-02-13] MEDS: MELATONIN 5 MG TABLETS PO SCH (21:21)
[2022-02-13] MEDS: THIAMINE HCL 100 MG TABLET (FP) PO SCH (21:22)
[2022-02-14 07:56] VITALS: RESP 18
[2022-02-14] MEDS: PRENATAL VITAMINS W/ FOLIC ACID TABLET (FP) PO SCH (10:14)
[2022-02-14] MEDS: PERPHENAZINE 4 MG TABLET PO SCH ×2 (10:14→21:22)
[2022-02-14] MEDS: NALTREXONE HCL 50 MG TABLET PO SCH (10:14)
[2022-02-14] MEDS: ACAMPROSATE CALCIUM 333 MG TABLET.DR PO SCH ×2 (10:14→21:22)
[2022-02-14] MEDS: KETOCONAZOLE 2 % SHAMPOO 120 ML BOTTLE TP SCH ×2 (10:15→11:22)
[2022-02-14] MEDS: THIAMINE HCL 100 MG TABLET (FP) PO SCH (21:22)
[2022-02-14] MEDS: MELATONIN 5 MG TABLETS PO SCH (21:22)
[2022-02-15] MEDS: PRENATAL VITAMINS W/ FOLIC ACID TABLET (FP) PO SCH (10:34)
[2022-02-15] MEDS: ACAMPROSATE CALCIUM 333 MG TABLET.DR PO SCH ×2 (10:35→21:54)
[2022-02-15] MEDS: PERPHENAZINE 4 MG TABLET PO SCH ×2 (10:35→21:54)
[2022-02-15] MEDS: NALTREXONE HCL 50 MG TABLET PO SCH (10:35)
[2022-02-15] MEDS: THIAMINE HCL 100 MG TABLET (FP) PO SCH (21:53)
[2022-02-15] MEDS: MELATONIN 5 MG TABLETS PO SCH (21:54)
[2022-02-16 07:07] VITALS: BP 104/69; PULSE 84; TEMP 97.4
[2022-02-16] MEDS: NALTREXONE HCL 50 MG TABLET PO SCH (09:42)
[2022-02-16] MEDS: ACAMPROSATE CALCIUM 333 MG TABLET.DR PO SCH (09:42)
[2022-02-16] MEDS: PERPHENAZINE 4 MG TABLET PO SCH (09:42)
[2022-02-16] MEDS: PRENATAL VITAMINS W/ FOLIC ACID TABLET (FP) PO SCH (09:43)
== END 2022-02-16 10:04 | disposition home or self-care (01) | DRG 772 ==
LOC: YASAS 13:06 → Y5N 13:07
PROVIDERS: ADMIT Allergy & Immunology; ATTEND Psychiatry & Neurology Pain Medicine
PROC: HZ42ZZZ Group Counseling for Substance Abuse Treatment, Cognitive-Behavioral (ICD-10-PCS; principal; 2022-01-18)
DX: F10.20 Alcohol dependence, uncomplicated (principal); F31.89 Other bipolar disorder; L30.9 Dermatitis, unspecified; L21.0 Seborrhea capitis; Z87.891 Personal history of nicotine dependence; Z88.0 Allergy status to penicillin
CPT/HCPCS: 36415; 80053